=== PATIENT | male | born 1955 | race Caucasian/White ===

== ENCOUNTER 2018-06-01 15:29 | Emergency (ER) | END 2018-06-01 23:11 | disposition short-term general hospital (02) ==

== ENCOUNTER 2018-09-04 09:32 | Inpatient (IN) | payer OTHER ==
[~2018-09-04] VITALS: Ht 172.7 cm; Wt 72.0 kg
[~2018-09-04 09:32] MED LIST: ACET1TAB40 PO; ALPR1TAB2 PO; CARI350T29 PO
[2018-09-04 09:52] VITALS: Ht 172.7 cm; Wt 72.0 kg
[2018-09-04] MEDS ORDERED: ONDANSETRON 4 MG INJ IV STA (10:10)
[2018-09-04] MEDS ORDERED: NALOXONE 2 MG SYG IV ONE (10:30)
--- NOTE | 2018-09-04 10:31 | ERD ---
ER Documentation Chief Complaint Chief Complaint BIBA FOR GEN WEAKNESS,LETHARGIC ONSET TODAY.DIALYSIS Pt HPI 62-year-old man brought in by EMS for lethargy and generalized weakness, patient has no complaints. Patient transported here by EMS from [facility], he is due for hemodialysis in about 2 days. He has had no fevers or chills, no vomiting or diarrhea, no seizure activity. HPI was limited but supplemented by speaking to EMS, reviewing [facility] records, and past medical history. ROS All systems reviewed and are negative except as per history of present illness. Medications Home Meds Reported Medications Ropinirole Hcl* (Ropinirole Hcl*) 0.5 Mg Tablet, 0.5 MG PO BID, TAB 09/04/18 Levetiracetam* (Keppra*) 250 Mg Tab, 250 MG PO BID, TAB 09/04/18 Calcium Acetate* (Calcium Acetate*) 667 Mg Capsule, 667 MG PO WITH MEALS, #30 CAP 09/04/18 Carisoprodol* (Carisoprodol*) 350 Mg Tablet, 350 MG PO BID PRN for MUSCLE SPASMS, TAB 09/04/18 Alprazolam* (Alprazolam*) 1 Mg Tablet, 2 MG PO BID PRN for ANXIETY, TAB 09/04/18 Discontinued Reported Medications Carisoprodol* (Carisoprodol*) 350 Mg Tablet, 350 MG PO BID PRN for MUSCLE SPASMS, TAB 06/01/18 Alprazolam* (Xanax*) 1 Mg Tab, 1 MG PO QHS PRN for ANXIETY, TAB 06/01/18 Acetaminophen with Codeine (Acetaminophen-Cod #3 Tablet) 1 Each Tablet, 1 TAB PO Q6H PRN for NEEDED, #20 TAB 06/01/18 Allergies Allergies: Coded Allergies: levofloxacin (Verified Allergy, Mild, 09/04/18) PMhx/Soc End-stage kidney disease, hemodialysis dependent, hypertension History of Surgery: Yes (LEFT LEG SKIN GRAFT, LUNG SURGERY) Anesthesia Reaction: No Hx Neurological Disorder: No Hx Respiratory Disorders: Yes (PNA) Hx Cardiac Disorders: Yes (HTN) Hx Psychiatric Problems: No Hx Miscellaneous Medical Probl: Yes (CKD, HD) Hx Alcohol Use: No Hx Substance Use: No Hx Tobacco Use: No Smoking Status: Never smoker FmHx Family History: No diabetes Physical Exam Vitals Vital Signs Date Temp Pulse Resp B/P (MAP) Pulse Ox O2 O2 Flow FiO2 Time Delivery Rate 09/04/18 97.5 67 18 107/75 100 09:52 (86) Physical Exam GENERAL: Well-developed, elderly, chronically debilitated man, afebrile HEENT: Dry mucous membranes, pink conjunctive a, no goiter, no cervical spine tenderness NEURO: Eyes closed, patient responsive to verbal stimuli, no focal deficits, moving all extremities, CARDIAC: Regular rate and rhythm, no murmurs rubs or gallops LUNGS: Clear bilaterally no wheezing crackles or stridor ABDOMEN: Soft nontender, no guarding, no rigidity, no rebound, no psoas sign no obturator sign. SKIN: Warm and dry to touch, no abrasions, contusions, or hematomas, no lacerations, no ecchymosis, no target lesions, and without ulcers EXTREMITIES: No clubbing cyanosis or edema, calves are bilaterally symmetrical, no Homans sign, no popliteal cord sign. Distal pulses equal and bilateral PSYCH: Normal affect without agitation or irritability Result Diagram: 09/04/18 1055 09/04/18 1055 Results 24 hrs Laboratory Tests Test 09/04/18 10:55 White Blood Count 5.6 10^3/ul Red Blood Count 3.12 10^6/ul Hemoglobin 10.7 g/dl Hematocrit 31.7 % Mean Corpuscular Volume 101.6 fl Mean Corpuscular Hemoglobin 34.3 pg Mean Corpuscular Hemoglobin Concent 33.8 g/dl Red Cell Distribution Width 12.9 % Platelet Count 91 10^3/UL Mean Platelet Volume 10.0 fl Immature Granulocytes % 0.400 % Neutrophils % 64.5 % Lymphocytes % 22.2 % Monocytes % 10.2 % Eosinophils % 2.3 % Basophils % 0.4 % Nucleated Red Blood Cells % 0.0 /100WBC Immature Granulocytes # 0.020 10^3/ul Neutrophils # 3.6 10^3/ul Lymphocytes # 1.2 10^3/ul Monocytes # 0.6 10^3/ul Eosinophils # 0.1 10^3/ul Basophils # 0.0 10^3/ul Nucleated Red Blood Cells # 0.0 10^3/ul Sodium Level 141 mmol/L Potassium Level 4.0 mmol/L Chloride Level 107 mmol/L Carbon Dioxide Level 19 mmol/L Anion Gap 15 Blood Urea Nitrogen 82 mg/dl Creatinine 4.86 mg/dl Est Glomerular Filtrat Rate mL/min 12 mL/min Glucose Level 77 mg/dl Calcium Level 8.8 mg/dl Total Bilirubin 0.0 mg/dl Direct Bilirubin 0.00 mg/dl Indirect Bilirubin 0.0 mg/dl Aspartate Amino Transf (AST/SGOT) 244 IU/L Alanine Aminotransferase (ALT/SGPT) 79 IU/L Alkaline Phosphatase 133 IU/L Total Protein 7.6 g/dl Albumin 3.8 g/dl Globulin 3.80 g/dl Albumin/Globulin Ratio 1.00 Lipase 65 U/L Current Medications Medications Dose Sig/Jaqueline Start Time Status Last (Trade) Ordered Route PRN Stop Time Admin Dose Reason Admin Naloxone 1 mg ONCE ONCE 09/04/18 DC 09/04/18 HCl IV 10:30 09/04/18 11:25 (Narcan) 10:31 Ondansetron 4 mg ONCE STAT 09/04/18 DC 09/04/18 HCl (Zofran IV 10:10 09/04/18 11:25 Inj) 10:12 Cefepime HCl 50 ml @ ONCE ONCE 09/04/18 DC 09/04/18 100 mls/hr IVPB 12:00 09/04/18 12:12 12:29 Azithromycin 250 ml @ ONCE ONCE 09/04/18 DC 09/04/18 250 mls/hr IVPB 12:00 09/04/18 13:09 12:59 Procedures/MDM IV line was established 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 Patient was afebrile EKG performed, read by me revealed a normal sinus rhythm at 64 bpm, normal axis, narrow QRS complex, no concerning ST elevations or depressions noted. I administered Narcan 1 mg IV and Zofran 4 mg IV. One AP view of the chest performed, read by me reveals no acute infiltrates, atelectatic changes bilaterally, sternotomy wires, dialysis catheter in the r ight chest. CBC was unremarkable, electrolytes revealed renal failure, liver function tests revealed mild transaminitis. Patient was given opioid analgesics prior to arrival and has documented benzo diazepine prescriptions so I suspect he overdosed on one or both of those medications but he has been coughing while in the ED and x-ray today revealed possible early infiltrate of the left lung. I administered cefepime 1 g IV and azithromycin 500 mg IV after obtaining blood culture. Patient will be admitted for continued medical management. Departure Diagnosis: Primary Impression: End stage kidney disease Additional Impressions: Acute encephalopathy Pneumonia Pneumonia type: due to unspecified organism Laterality: left Lung location: lower lobe of lung Qualified Codes: J18.1 - Lobar pneumonia, unspecified organism Condition: Fair NANCY العراقي MD Sep 04, 2018 10:31
[2018-09-04] MEDS ORDERED: ALPR1TAB7 PO (11:34)
[2018-09-04] MEDS ORDERED: CARI350T29 PO (11:34)
[2018-09-04] MEDS ORDERED: CALC667C PO (11:34)
[2018-09-04] MEDS ORDERED: ROPI0.5T2 PO (11:35)
[2018-09-04] MEDS ORDERED: LEVE250T66 PO (11:35)
[2018-09-04] MEDS ORDERED: AZITHROMYCIN 500MG/NS (PMX) 250 ML IVPB ONE (12:00)
[2018-09-04] MEDS ORDERED: CEFEPIME 1GM/50 ML (PMX) 50 ML IVPB ONE (12:00)
[2018-09-04] MEDS ORDERED: SOD CHLORIDE 0.45% 1,000 ML IV SCH (13:24)
[2018-09-04] MEDS ORDERED: ONDANSETRON 4 MG INJ IV PRN (13:30)
[2018-09-04] MEDS ORDERED: MAGNESIUM HYDROXIDE 30ML CUP PO PRN (13:30)
[2018-09-04] MEDS ORDERED: LORAZEPAM 2 MG INJ IV PRN (13:30)
[2018-09-04] MEDS ORDERED: NITROGLYCERIN (SL) 0.4 MG TAB SL PRN (13:30)
[2018-09-04] MEDS ORDERED: hydrALAzine 20 MG INJ IV PRN (13:30)
[2018-09-04] MEDS ORDERED: NACL 0.9% 3 ML SYG IV SCH (13:30)
[2018-09-04] MEDS ORDERED: DOCUSATE SODIUM 100 MG CAP PO PRN (13:30)
[2018-09-04] MEDS ORDERED: ALBUTEROL/IPRATROPIUM (NEB) 3 ML AMP HHN PRN (13:30)
[2018-09-04] MEDS ORDERED: ACETAMINOPHEN 325 MG TAB PO PRN (13:30)
[2018-09-04] MEDS ORDERED: LEVOFLOXACIN 500MG/D5W (PMX) 100 ML IVPB SCH (14:00)
--- NOTE | 2018-09-04 14:23 | CONS ---
Assessment/Plan Assessment/Plan Assessment/Plan (Daily) 1. Acute Opiate Overdose 2. ESRD on HD 3. H/o Seizure disorder 4. ? prostate CA 5. Left lower lobe infitrlates concerned about Pneumonia Plan: IV abx as per PMD, renally dose all abx and monitor electrolytes Plan for HD on Thursday, K normal and No sign sof fluid overload pt came from SNF, we do not know his HD schedule Thanks for consultation, will follow up Consultation Date/Type/Reason Admit Date/Time Sep 04, 2018 at 12:30 Date of Consultation: Sep 04, 2018 Type of Consult NEPHROLOGY Reason for Consultation ESRD on HD with Opiate overdose Requesting Provider: SAY MAXWELL Date/Time of Note DATE: 09/04/18 TIME: 14:22 Hx of Present Illness 62-year-old male with past medical history of seizure disorder, Prostate CA, end-stage renal disease on dialysis MWF,, prior pneumonia, hypertension who was brought in by EMS for lethargy and generalized weakness. Most of the information is obtained from the ER documentation as the patient is unable to provide full HPI at this time. he gets admitted for Opiate overdose. Renal has been consulted for his mantainance HD, his K 4.0, HCo3 19. Subjective hx not possible: pt non-verbal, other (altered mental status, Unable to obtain ROS ) Past Medical History Medical History: high cholesterol, hypertension, other (ESRD on HD ) Home Meds Reported Medications Ropinirole Hcl* (Ropinirole Hcl*) 0.5 Mg Tablet, 0.5 MG PO BID, TAB 09/04/18 Levetiracetam* (Keppra*) 250 Mg Tab, 250 MG PO BID, TAB 09/04/18 Calcium Acetate* (Calcium Acetate*) 667 Mg Capsule, 667 MG PO WITH MEALS, #30 CAP 09/04/18 Carisoprodol* (Carisoprodol*) 350 Mg Tablet, 350 MG PO BID PRN for MUSCLE SPASMS, TAB 09/04/18 Alprazolam* (Alprazolam*) 1 Mg Tablet, 2 MG PO BID PRN for ANXIETY, TAB 09/04/18 Discontinued Reported Medications Carisoprodol* (Carisoprodol*) 350 Mg Tablet, 350 MG PO BID PRN for MUSCLE SPASM S, TAB 06/01/18 Alprazolam* (Xanax*) 1 Mg Tab, 1 MG PO QHS PRN for ANXIETY, TAB 06/01/18 Acetaminophen with Codeine (Acetaminophen-Cod #3 Tablet) 1 Each Tablet, 1 TAB PO Q6H PRN for NEEDED, #20 TAB 06/01/18 Medications Current Medications IV Flush (NS 3 ml) 3 ml PER PROTOCOL IV ; Start 09/04/18 at 13:30 Ondansetron HCl (Zofran Inj) 4 mg Q6H PRN IV NAUSEA/VOMITING; Start 09/04/18 at 13:30 Acetaminophen (Tylenol Tab) 650 mg Q6H PRN PO .PAIN 1-3 OR TEMP; Start 09/04/18 at 13:30 Docusate Sodium (Colace) 100 mg Q12H PRN PO .CONSTIPATION; Start 09/04/18 at 13:30 Magnesium Hydroxide (Milk Of Mag) 30 ml DAILY PRN PO .CONSTIPATION; Start 09/04/18 at 13:30 Pantoprazole (Protonix Tab) 40 mg DAILY@06 PO ; Start 09/05/18 at 06:00 Heparin Sodium (Porcine) (Heparin (5000 Units/1ml)) 5,000 unit Q12 SC ; Start 09/04/18 at 21:00 Sodium Chloride 1,000 ml @ 75 mls/hr [id number] IV ; Start 09/04/18 at 13:24; Stop 09/04/18 at 21:55 Lorazepam (Ativan) 0.5 mg Q6H PRN IV ANXIETY; Start 09/04/18 at 13:30 Albuterol/ Ipratropium (Duoneb) 3 ml Q4H RESP THERAPY PRN HHN SHORTNESS OF BREATH; Start 09/04/18 at 13:30 Hydralazine HCl (Apresoline) 10 mg Q6H PRN IV ELEVATED BLOOD PRESSURE; Start 09/04/18 at 13:30 Nitroglycerin (Nitroglycerin (Sl Tab) 0.4 Mg) 1 tab Q5M PRN SL ANGINA; Start 09/04/18 at 13:30 Calcium Acetate (Phoslo) 667 mg WITH MEALS PO ; Start 09/04/18 at 18:00 Levetiracetam (Keppra) 250 mg BID PO ; Start 09/04/18 at 21:00 Aztreonam 0.5 gm/ Sodium Chloride 50 ml @ 100 mls/hr Q12 IVPB ; Start 09/04/18 at 15:00 Allergies: Coded Allergies: levofloxacin (Verified Allergy, Mild, 09/04/18) Past Surgical History Past Surgical Hx: other (Dialysis access surgery, R permacath ) Family History Significant Family History: no pertinent family hx Social History Alcohol Use: none Smoking Status: Never smoker Drug Use: none Exam/Review of Systems Exam Vitals Vital Signs Date Temp Pulse Resp B/P (MAP) Pulse Ox O2 O2 Flow FiO2 Time Delivery Rate 09/04/18 98.7 80 18 126/81 98 Room Air 13:17 (96) Exam GENERAL: lethargic HEENT: Pupils are more reactive today. Extraocular muscles are intact. NECK: Supple, no thyromegaly. LUNGS: Clear to auscultation bilaterally. CARDIOVASCULAR: S1, S2 heard. No rubs or gallops. ABDOMEN: Soft, nontender, ND, BS+ MUSCULOSKELETAL: No lower extremity edema bilaterally. NEUROLOGIC: Appears to move all extremities. Gait was not assessed. Results Result Diagram: 09/04/18 1055 09/04/18 1055 Results 24hrs Laboratory Tests Test 09/04/18 10:55 White Blood Count 5.6 Red Blood Count 3.12 L Hemoglobin 10.7 L Hematocrit 31.7 #L Mean Corpuscular Volume 101.6 H Mean Corpuscular Hemoglobin 34.3 H Mean Corpuscular Hemoglobin Concent 33.8 Red Cell Distribution Width 12.9 Platelet Count 91 #L Mean Platelet Volume 10.0 Immature Granulocytes % 0.400 Neutrophils % 64.5 Lymphocytes % 22.2 Monocytes % 10.2 Eosinophils % 2.3 Basophils % 0.4 Nucleated Red Blood Cells % 0.0 Immature Granulocytes # 0.020 Neutrophils # 3.6 Lymphocytes # 1.2 Monocytes # 0.6 Eosinophils # 0.1 Basophils # 0.0 Nucleated Red Blood Cells # 0.0 Sodium Level 141 Potassium Level 4.0 Chloride Level 107 Carbon Dioxide Level 19 L Anion Gap 15 H Blood Urea Nitrogen 82 H Creatinine 4.86 H Est Glomerular Filtrat Rate mL/min 12 L Glucose Level 77 Calcium Level 8.8 Total Bilirubin 0.0 L Direct Bilirubin 0.00 Indirect Bilirubin 0.0 Aspartate Amino Transf (AST/SGOT) 244 H Alanine Aminotransferase (ALT/SGPT) 79 H Alkaline Phosphatase 133 H Total Protein 7.6 Albumin 3.8 Globulin 3.80 H Albumin/Globulin Ratio 1.00 Lipase 65 Medications Medication Current Medications IV Flush (NS 3 ml) 3 ml PER PROTOCOL IV ; Start 09/04/18 at 13:30 Ondansetron HCl (Zofran Inj) 4 mg Q6H PRN IV NAUSEA/VOMITING; Start 09/04/18 at 13:30 Acetaminophen (Tylenol Tab) 650 mg Q6H PRN PO .PAIN 1-3 OR TEMP; Start 09/04/18 at 13:30 Docusate Sodium (Colace) 100 mg Q12H PRN PO .CONSTIPATION; Start 09/04/18 at 13:30 Magnesium Hydroxide (Milk Of Mag) 30 ml DAILY PRN PO .CONSTIPATION; Start 09/04/18 at 13:30 Pantoprazole (Protonix Tab) 40 mg DAILY@06 PO ; Start 09/05/18 at 06:00 Heparin Sodium (Porcine) (Heparin (5000 Units/1ml)) 5,000 unit Q12 SC ; Start 09/04/18 at 21:00 Sodium Chloride 1,000 ml @ 75 mls/hr [id number] IV ; Start 09/04/18 at 13:24; Stop 09/04/18 at 21:55 Lorazepam (Ativan) 0.5 mg Q6H PRN IV ANXIETY; Start 09/04/18 at 13:30 Albuterol/ Ipratropium (Duoneb) 3 ml Q4H RESP THERAPY PRN HHN SHORTNESS OF BREATH; Start 09/04/18 at 13:30 Hydralazine HCl (Apresoline) 10 mg Q6H PRN IV ELEVATED BLOOD PRESSURE; Start 09/04/18 at 13:30 Nitroglycerin (Nitroglycerin (Sl Tab) 0.4 Mg) 1 tab Q5M PRN SL ANGINA; Start 09/04/18 at 13:30 Calcium Acetate (Phoslo) 667 mg WITH MEALS PO ; Start 09/04/18 at 18:00 Levetiracetam (Keppra) 250 mg BID PO ; Start 09/04/18 at 21:00 Aztreonam 0.5 gm/ Sodium Chloride 50 ml @ 100 mls/hr Q12 IVPB ; Start 09/04/18 at 15:00 SYLVESTER CORONADO MD Sep 04, 2018 14:23
--- NOTE | 2018-09-04 14:41 | HP ---
DATE OF ADMISSION: 09/04/2018 IDENTIFICATION: This is a 62-year-old male. CHIEF COMPLAINT: Weakness, possible overdose, lethargy. HISTORY OF PRESENT ILLNESS: A 62-year-old male with past medical history based on records of end-sta ge renal disease on dialysis, prior pneumonia, hypertension who was brought in by EMS for lethargy an d generalized weakness. Most of the information is obtained from the ER documentation as the patient is unable to provide full HPI at this time. He does answer simple yes/no questions. Apparently, he came from some kind of nursing facility and was noted by ER doctor to have pinpoint pupils. Upon fu rther review of his records, apparently he had been taking some benzodiazepines and possibly opiates. He received Narcan in the ER and became more awake after getting that medication, but is still quit e lethargic. Full review of systems cannot be obtained at this time. He apparently is due for [facility] in the next 2 days. PAST MEDICAL HISTORY: As above. ALLERGIES: NO KNOWN DRUG ALLERGIES. MEDICATIONS AT HOME: Based on ER documentation, he is apparently takin. Soma 350 mg p.o. b.i.d. p.r.n. 2. Alprazolam 2 mg p.o. b.i.d. p.r.n. 3. Keppra 250 mg b.i.d. 4. Ropinirole 0.5 mg b.i.d. 5. Calcium acetate 667 mg with meals. PAST SURGICAL HISTORY: Apparently, he has had some kind of left leg skin graft in the past and some kind of lung surgery in the past. SOCIAL HISTORY: Negative for smoking or alcohol use, unclear about other substance abuse as well as recreational or other. FAMILY HISTORY: Noncontributory. PHYSICAL EXAMINATION: VITAL SIGNS: T-max 97.5, pulse 67, respirations 18, blood pressure 107/75, satting 100% on room air. GENERAL: The patient is lying in bed, opens eyes, answers simple questions but otherwise no acute di stress but lethargic. HEENT: Pupils are more reactive today. Extraocular muscles are intact. NECK: Supple, no thyromegaly. LUNGS: Clear to auscultation bilaterally. CARDIOVASCULAR: S1, S2 heard. No rubs or gallops. ABDOMEN: Soft, nontender, nondistended. Normal bowel sounds. No rebound or guarding. MUSCULOSKELETAL: No lower extremity edema bilaterally. NEUROLOGIC: Appears to move all extremities. Gait was not assessed. LABORATORY DATA: CBC is normal except MCV is a little high at 101.6. Sodium 141, potassium 4.0, chl oride 107, CO2 19, BUN 82, creatinine 4.86, glucose of 77. His AST is a little high at 244, ALT is a little high at 79. Alkaline phosphatase a little high at 133. Lipase is normal. IMAGING: The patient had a chest x-ray today. He has a left lower lobe atelectatic changes, possibl e infiltrate. ASSESSMENT AND PLAN: A 62-year-old male coming in with lethargy, possibly secondary to benzos and op iate overdose, also signs of possible left lobe pneumonia. 1. Lethargy, again likely secondary to overdose on opiate and possible benzos. Admit the patient he re, did receive Narcan in the ER. Continue to monitor him for now. Consider doing neuro checks ever y 4 hours until he becomes more alert. Give him low-dose IV fluids for the next 12 hours. Check TSH , A1c, lipid panel. Hold his home muscle relaxants, opiate and benzo medications for now until he de toxifies. 2. Left lower lobe infiltrate, possible pneumonia. No fevers. White blood cell count is normal. F or now, continue Levaquin antibiotics. Follow up final culture results. Tylenol p.r.n. pain and fev ers. Get PT and speech therapy consults. 3. History of end-stage renal disease on dialysis. Again, monitor for now. Will get a renal consul t as well. Again, cautious use of fluids for the next 12 hours. 4. Questionable history of seizure. Continue Keppra for now, do neuro checks. If there are any epi sodes of possible seizures, we will get EEG and possible neurology consult. We need to get more info rmation on why the patient is taking Keppra at home, so it is unclear why he is taking that. 5. Gastrointestinal prophylaxis, PPI. 6. Deep venous thrombosis prophylaxis, heparin subq. Dictated By: SAY ORLLE/INGA Conf#: [id number] DID#: [id number]
[2018-09-04 14:43] VITALS: BP 110/64; PULSE 76; RESP 20
[2018-09-04] MEDS: CALCIUM ACETATE 667 MG CAP PO SCH (18:00)
[2018-09-04] MEDS: AZTREONAM 0.5 GM in SOD CHLORIDE 0.9% 50 ML IVPB SCH ×2 (19:29→20:42)
[2018-09-04 20:00] VITALS: BP 97/56; PULSE 69; RESP 18
[2018-09-04] MEDS: HEPARIN 5,000 UNIT/1 ML VIAL SC SCH (20:42)
[2018-09-04] MEDS: LEVETIRACETAM 250 MG TAB PO SCH (20:42)
[2018-09-05] MEDS ORDERED: ALPRAZOLAM 0.5 MG TAB PO PRN (02:30)
[2018-09-05] MEDS ORDERED: PANTOPRAZOLE (EC) 40 MG TAB PO ONE (04:17)
[2018-09-05] MEDS: PANTOPRAZOLE (EC) 40 MG TAB PO SCH (05:17)
[2018-09-05 08:54] VITALS: BP 102/61; PULSE 64; RESP 17
[2018-09-05] MEDS ORDERED: AZTREONAM 1 GM/NS (PMX) 50 ML IVPB SCH (09:00)
[2018-09-05] MEDS: LEVETIRACETAM 250 MG TAB PO SCH ×2 (09:03→21:12)
[2018-09-05] MEDS: CALCIUM ACETATE 667 MG CAP PO SCH ×3 (09:03→17:35)
[2018-09-05] MEDS: HEPARIN 5,000 UNIT/1 ML VIAL SC SCH ×2 (09:04→21:13)
[2018-09-05] MEDS: AZTREONAM 0.5 GM in SOD CHLORIDE 0.9% 50 ML IVPB SCH ×2 (09:23→21:13)
[2018-09-05] MEDS ORDERED: ALBUMIN HUMAN 25% 100 ML IV PRN (09:30)
[2018-09-05] MEDS ORDERED: HEPARIN 1000 UNITS/ML 10 ML INJ CATHETER SCH (09:30)
[2018-09-05] MEDS ORDERED: SODIUM CHLORIDE 0.9% 1L BAG IV PRN (09:30)
--- NOTE | 2018-09-05 10:03 | CONS ---
Consultation Date/Type/Reason Admit Date/Time Sep 04, 2018 at 12:30 Initial Consult Date 09/04/18 Type of Consult NEPHROLOGY Requesting Provider: SAY MAXWELL Date/Time of Note DATE: 09/05/18 TIME: 10:03 Exam/Review of Systems Exam Vitals Vital Signs Date Temp Pulse Resp B/P (MAP) Pulse Ox O2 O2 Flow FiO2 Time Delivery Rate 09/05/18 97.7 64 17 102/61 96 Room Air 08:54 (75) Intake and Output 09/04/18 09/04/18 09/05/18 1515:00 23:00 07:00 IntakeIntake Total 290 ml 50 ml BalanceBalance 290 ml 50 ml Results Result Diagram: 09/05/1843909/05/18439 Results 24hrs Laboratory Tests Test 09/04/18 10:55 09/04/18 14:07 09/05/18 04:31 09/05/18 04:40 White Blood Count 5.6 3.5 #L Red Blood Count 3.12 L 2.83 L Hemoglobin 10.7 L 9.6 L Hematocrit 31.7 #L 29.0 L Mean Corpuscular Volume 101.6 H 102.5 H Mean Corpuscular 34.3 H 33.9 H Hemoglobin Mean Corpuscular 33.8 33.1 Hemoglobin Concent Red Cell Distribution 12.9 13.4 Width Platelet Count 91 #L 89 L Mean Platelet Volume 10.0 10.8 H Immature Granulocytes % 0.400 0.300 Neutrophils % 64.5 49.5 Lymphocytes % 22.2 32.7 Monocytes % 10.2 11.2 H Eosinophils % 2.3 5.7 Basophils % 0.4 0.6 Nucleated Red Blood 0.0 0.0 Cells % Immature Granulocytes # 0.020 0.010 Neutrophils # 3.6 1.7 Lymphocytes # 1.2 1.1 Monocytes # 0.6 0.4 Eosinophils # 0.1 0.2 Basophils # 0.0 0.0 Nucleated Red Blood 0.0 0.0 Cells # Sodium Level 141 141 Potassium Level 4.0 3.7 Chloride Level 107 107 Carbon Dioxide Level 19 L 19 L Anion Gap 15 H 15 H Blood Urea Nitrogen 82 H 82 H Creatinine 4.86 H 4.59 H Est Glomerular Filtrat 12 L 13 L Rate mL/min Glucose Level 77 85 Calcium Level 8.8 8.3 L Total Bilirubin 0.0 L Direct Bilirubin 0.00 Indirect Bilirubin 0.0 Aspartate Amino 244 H Transf (AST/SGOT) Alanine 79 H Aminotransferase (ALT/SG PT) Alkaline Phosphatase 133 H Total Protein 7.6 Albumin 3.8 Globulin 3.80 H Albumin/Globulin Ratio 1.00 Lipase 65 Free Thyroxine 1.82 Ethyl Alcohol Level < 10.0 H Hepatitis B Surface Pending Antigen Hepatitis B Core Pending Total Antibody Hepatitis C Antibody Pending Hemoglobin A1c 5.1 Phosphorus Level 5.3 H Magnesium Level 2.5 Triglycerides Level 78 Cholesterol Level 100 LDL Cholesterol, 54 Calculated HDL Cholesterol 30 Cholesterol/HDL Ratio 3.3 Thyroid Stimulating 0.470 Hormone (TSH) Medications Medication Current Medications IV Flush (NS 3 ml) 3 ml PER PROTOCOL IV ; Start 09/04/18 at 13:30 Ondansetron HCl (Zofran Inj) 4 mg Q6H PRN IV NAUSEA/VOMITING; Start 09/04/18 at 13:30 Acetaminophen (Tylenol Tab) 650 mg Q6H PRN PO .PAIN 1-3 OR TEMP; Start 09/04/18 at 13:30 Docusate Sodium (Colace) 100 mg Q12H PRN PO .CONSTIPATION; Start 09/04/18 at 13:30 Magnesium Hydroxide (Milk Of Mag) 30 ml DAILY PRN PO .CONSTIPATION; Start 09/04/18 at 13:30 Pantoprazole (Protonix Tab) 40 mg DAILY@06 PO Last administered on 09/05/18at 05:17; Admin Dose 40 MG; Start 09/05/18 at 06:00 Heparin Sodium (Porcine) (Heparin (5000 Units/1ml)) 5,000 unit Q12 SC Last administered on 09/05/18at 09:04; Admin Dose 5,000 UNIT; Start 09/04/18 at 21:00 Lorazepam (Ativan) 0.5 mg Q6H PRN IV ANXIETY; Start 09/04/18 at 13:30 Albuterol/ Ipratropium (Duoneb) 3 ml Q4H RESP THERAPY PRN HHN SHORTNESS OF BR EATH; Start 09/04/18 at 13:30 Hydralazine HCl (Apresoline) 10 mg Q6H PRN IV ELEVATED BLOOD PRESSURE; Start 09/04/18 at 13:30 Nitroglycerin (Nitroglycerin (Sl Tab) 0.4 Mg) 1 tab Q5M PRN SL ANGINA; Start 09/04/18 at 13:30 Calcium Acetate (Phoslo) 667 mg WITH MEALS PO Last administered on 09/05/18at 09:03; Admin Dose 667 MG; Start 09/04/18 at 18:00 Levetiracetam (Keppra) 250 mg BID PO Last administered on 09/05/18 09:03; Admin Dose 250 MG; Start 09/04/18 at 21:00 Aztreonam 0.5 gm/ Sodium Chloride 50 ml @ 100 mls/hr Q12 IVPB Last administered on 09/05/18 09:23; Admin Dose 100 MLS/HR; Start 09/04/18 at 15:00 Carisoprodol (Soma) 350 mg BID PRN PO MUSCLE SPASMS; Start 09/04/18 at 22:30 Alprazolam (Xanax) 2 mg BID PRN PO ANXIETY Last administered on 09/05/18at 02:34; Admin Dose 2 MG; Start 09/05/18 at 02:30 Heparin Sodium (Porcine) (Heparin (1000 Units/ml)) 4,000 unit AFTER DIALYSIS CATHETER ; Start 09/05/18 at 09:30 Albumin Human 100 ml @ 100 mls/hr WITH DIALYSIS PRN IV SBP <90 DURING DIALYSIS ; Start 09/05/18 at 09:30 Sodium Chloride (NS) -To prime the dialy... DIRECTED FOR HD PRN IV HD; Start 09/05/18 at 09:30 SYLVESTER CORONADO MD Sep 05, 2018 10:03
--- NOTE | 2018-09-05 10:42 | PN ---
Date/Time of Note Date/Time of Note DATE: 09/05/18 TIME: 10:37 Assessment/Plan VTE Prophylaxis Risk score (from Ns)>0 risk: 3 SCD applied (from Ns): No SCD contraindicated: other Pharmacological prophylaxis: other Lines/Catheters IV Catheter Type (from [facility]): Peripheral IV Urinary Cath still in place: No Assessment/Plan Hospital Course renal follow up patient is well known to me from outpatient HD and previous admissions. He is a 62-year-old male with past medical history of seizure disorder, Prostate CA, end-stage renal disease on dialysis TTS, prior pneumonia, hypertension who was brought in by EMS for lethargy and generalized weakness. he was admitted to [facility] few days ago for Soma overdose. he was dc'd in stable condition but is now admitted for overdose again. Exam GENERAL: lethargic HEENT: Pupils are more reactive today. Extraocular muscles are intact. NECK: Supple, no thyromegaly. LUNGS: Clear to auscultation bilaterally. CARDIOVASCULAR: S1, S2 heard. No rubs or gallops. ABDOMEN: Soft, nontender, ND, BS+ MUSCULOSKELETAL: No lower extremity edema bilaterally. NEUROLOGIC: Appears to move all extremities. Gait was not assessed. 1. Acute Overdose: he has an outside physician who is in charge of detoxing him. he was previously on methadone but is now taking soma, xanax and norco 2. ESRD on HD: will continue intermittet HD (he is on tts schedule) 3. H/o Seizure disorder 4. anemia Result Diagram: 09/05/18 0440 09/05/18 0440 Results 24hrs Laboratory Tests Test 09/04/18 10:55 09/04/18 14:07 09/05/18 04:31 09/05/18 04:40 White Blood Count 5.6 3.5 #L Red Blood Count 3.12 L 2.83 L Hemoglobin 10.7 L 9.6 L Hematocrit 31.7 #L 29.0 L Mean Corpuscular Volume 101.6 H 102.5 H Mean Corpuscular 34.3 H 33.9 H Hemoglobin Mean Corpuscular 33.8 33.1 Hemoglobin Concent Red Cell Distribution 12.9 13.4 Width Platelet Count 91 #L 89 L Mean Platelet Volume 10.0 10.8 H Immature Granulocytes % 0.400 0.300 Neutrophils % 64.5 49.5 Lymphocytes % 22.2 32.7 Monocytes % 10.2 11.2 H Eosinophils % 2.3 5.7 Basophils % 0.4 0.6 Nucleated Red Blood 0.0 0.0 Cells % Immature Granulocytes # 0.020 0.010 Neutrophils # 3.6 1.7 Lymphocytes # 1.2 1.1 Monocytes # 0.6 0.4 Eosinophils # 0.1 0.2 Basophils # 0.0 0.0 Nucleated Red Blood 0.0 0.0 Cells # Sodium Level 141 141 Potassium Level 4.0 3.7 Chloride Level 107 107 Carbon Dioxide Level 19 L 19 L Anion Gap 15 H 15 H Blood Urea Nitrogen 82 H 82 H Creatinine 4.86 H 4.59 H Est Glomerular Filtrat 12 L 13 L Rate mL/min Glucose Level 77 85 Calcium Level 8.8 8.3 L Total Bilirubin 0.0 L Direct Bilirubin 0.00 Indirect Bilirubin 0.0 Aspartate Amino 244 H Transf (AST/SGOT) Alanine 79 H Aminotransferase (ALT/SG PT) Alkaline Phosphatase 133 H Total Protein 7.6 Albumin 3.8 Globulin 3.80 H Albumin/Globulin Ratio 1.00 Lipase 65 Free Thyroxine 1.82 Ethyl Alcohol Level < 10.0 H Hepatitis B Surface Pending Antigen Hepatitis B Core Pending Total Antibody Hepatitis C Antibody Pending Hemoglobin A1c 5.1 Phosphorus Level 5.3 H Magnesium Level 2.5 Triglycerides Level 78 Cholesterol Level 100 LDL Cholesterol, 54 Calculated HDL Cholesterol 30 Cholesterol/HDL Ratio 3.3 Thyroid Stimulating 0.470 Hormone (TSH) Exam/Review of Systems Exam Vitals Vital Signs Date Temp Pulse Resp B/P (MAP) Pulse Ox O2 O2 Flow FiO2 Time Delivery Rate 09/05/18 97.7 64 17 102/61 96 Room Air 08:54 (75) Intake and Output 09/04/18 09/04/18 09/05/18 1515:00 23:00 07:00 IntakeIntake Total 290 ml 50 ml BalanceBalance 290 ml 50 ml Results Results 24hrs Laboratory Tests Test 09/04/18 10:55 09/04/18 14:07 09/05/18 04:31 09/05/18 04:40 White Blood Count 5.6 3.5 #L Red Blood Count 3.12 L 2.83 L Hemoglobin 10.7 L 9.6 L Hematocrit 31.7 #L 29.0 L Mean Corpuscular Volume 101.6 H 102.5 H Mean Corpuscular 34.3 H 33.9 H Hemoglobin Mean Corpuscular 33.8 33.1 Hemoglobin Concent Red Cell Distribution 12.9 13.4 Width Platelet Count 91 #L 89 L Mean Platelet Volume 10.0 10.8 H Immature Granulocytes % 0.400 0.300 Neutrophils % 64.5 49.5 Lymphocytes % 22.2 32.7 Monocytes % 10.2 11.2 H Eosinophils % 2.3 5.7 Basophils % 0.4 0.6 Nucleated Red Blood 0.0 0.0 Cells % Immature Granulocytes # 0.020 0.010 Neutrophils # 3.6 1.7 Lymphocytes # 1.2 1.1 Monocytes # 0.6 0.4 Eosinophils # 0.1 0.2 Basophils # 0.0 0.0 Nucleated Red Blood 0.0 0.0 Cells # Sodium Level 141 141 Potassium Level 4.0 3.7 Chloride Level 107 107 Carbon Dioxide Level 19 L 19 L Anion Gap 15 H 15 H Blood Urea Nitrogen 82 H 82 H Creatinine 4.86 H 4.59 H Est Glomerular Filtrat 12 L 13 L Rate mL/min Glucose Level 77 85 Calcium Level 8.8 8.3 L Total Bilirubin 0.0 L Direct Bilirubin 0.00 Indirect Bilirubin 0.0 Aspartate Amino 244 H Transf (AST/SGOT) Alanine 79 H Aminotransferase (ALT/SG PT) Alkaline Phosphatase 133 H Total Protein 7.6 Albumin 3.8 Globulin 3.80 H Albumin/Globulin Ratio 1.00 Lipase 65 Free Thyroxine 1.82 Ethyl Alcohol Level < 10.0 H Hepatitis B Surface Pending Antigen Hepatitis B Core Pending Total Antibody Hepatitis C Antibody Pending Hemoglobin A1c 5.1 Phosphorus Level 5.3 H Magnesium Level 2.5 Triglycerides Level 78 Cholesterol Level 100 LDL Cholesterol, 54 Calculated HDL Cholesterol 30 Cholesterol/HDL Ratio 3.3 Thyroid Stimulating 0.470 Hormone (TSH) Medications Medication Current Medications IV Flush (NS 3 ml) 3 ml PER PROTOCOL IV ; Start 09/04/18 at 13:30 Ondansetron HCl (Zofran Inj) 4 mg Q6H PRN IV NAUSEA/VOMITING; Start 09/04/18 at 13:30 Acetaminophen (Tylenol Tab) 650 mg Q6H PRN PO .PAIN 1-3 OR TEMP; Start 09/04/18 at 13:30 Docusate Sodium (Colace) 100 mg Q12H PRN PO .CONSTIPATION; Start 09/04/18 at 13:30 Magnesium Hydroxide (Milk Of Mag) 30 ml DAILY PRN PO .CONSTIPATION; Start 09/04/18 at 13:30 Pantoprazole (Protonix Tab) 40 mg DAILY@06 PO Last administered on 09/05/18at 05:17; Admin Dose 40 MG; Start 09/05/18 at 06:00 Heparin Sodium (Porcine) (Heparin (5000 Units/1ml)) 5,000 unit Q12 SC Last administered on 09/05/18at 09:04; Admin Dose 5,000 UNIT; Start 09/04/18 at 21:00 Lorazepam (Ativan) 0.5 mg Q6H PRN IV ANXIETY; Start 09/04/18 at 13:30 Albuterol/ Ipratropium (Duoneb) 3 ml Q4H RESP THERAPY PRN HHN SHORTNESS OF BREATH; Start 09/04/18 at 13:30 Hydralazine HCl (Apresoline) 10 mg Q6H PRN IV ELEVATED BLOOD PRESSURE; Start 09/04/18 at 13:30 Nitroglycerin (Nitroglycerin (Sl Tab) 0.4 Mg) 1 tab Q5M PRN SL ANGINA; Start 09/04/18 at 13:30 Calcium Acetate (Phoslo) 667 mg WITH MEALS PO Last administered on 09/05/18at 09:03; Admin Dose 667 MG; Start 09/04/18 at 18:00 Levetiracetam (Keppra) 250 mg BID PO Last administered on 09/05/18 09:03; Admin Dose 250 MG; Start 09/04/18 at 21:00 Aztreonam 0.5 gm/ Sodium Chloride 50 ml @ 100 mls/hr Q12 IVPB Last administered on 09/05/18 09:23; Admin Dose 100 MLS/HR; Start 09/04/18 at 15:00 Carisoprodol (Soma) 350 mg BID PRN PO MUSCLE SPASMS; Start 09/04/18 at 22:30 Alprazolam (Xanax) 2 mg BID PRN PO ANXIETY Last administered on 09/05/18at 02:34; Admin Dose 2 MG; Start 09/05/18 at 02:30 Heparin Sodium (Porcine) (Heparin (1000 Units/ml)) 4,000 unit AFTER DIALYSIS CATHETER ; Start 09/05/18 at 09:30 Albumin Human 100 ml @ 100 mls/hr WITH DIALYSIS PRN IV SBP <90 DURING DIALYSIS; Start 09/05/18 at 09:30 Sodium Chloride (NS) -To prime the dialy... DIRECTED FOR HD PRN IV HD; Start 09/05/18 at 09:30 JULIETH BATES DO Sep 05, 2018 10:42
[2018-09-05] MEDS: CARISOPRODOL 350 MG TAB PO PRN (11:55)
[2018-09-05 14:00] VITALS: BP 130/65; PULSE 88; RESP 18
--- NOTE | 2018-09-05 14:54 | PN ---
Date/Time of Note Date/Time of Note DATE: 09/05/18 TIME: 14:51 Assessment/Plan VTE Prophylaxis Risk score (from Ns)>0 risk: 5 SCD applied (from Ns): No SCD contraindicated: other Pharmacological prophylaxis: heparin Lines/Catheters IV C[facility]ter Type (from [facility]): Peripheral IV Urinary Cath still in place: No Assessment/Plan Hospital Course S: Patient seen by renal team earlier. Still somewhat lethargic but slightly more awake than yesterday. No present complaints O: Vs- see below PHYSICAL EXAMINATION: GENERAL: lying in bed, opens eyes, lethargic. HEENT: Pupils reactive, Extraocular muscles are intact. NECK: Supple, no thyromegaly. LUNGS: Clear to auscultation bilaterally. CARDIOVASCULAR: S1, S2 heard. No rubs or gallops. ABDOMEN: Soft, nontender, nondistended. Normal bowel sounds. No rebound or guarding. MUSCULOSKELETAL: No lower extremity edema bilaterally. NEUROLOGIC: No focal deficits ASSESSMENT AND PLAN: 62-year-old male coming in with lethargy, possibly secondary to benzos and opiate overdose, also signs of possible left lobe p neumonia. 1. Lethargy- again likely secondary to overdose on opiate and possible benzos- did receive Narcan in the ER. - Continue to monitor him for now -Continue to hold his home muscle relaxants, opiate and benzo medications for now until he detoxifies. -PT and OT eval 2. Left lower lobe infiltrate, possible pneumonia. No fevers. White blood cell count is normal. - For now, continue Levaquin antibiotics. Follow up final culture results. - Tylenol p.r.n. pain and fevers. -Follow-up PT and speech therapy consults. 3. History of end-stage renal disease on dialysis. - Again, monitor for now. -Follow-up recommendations from renal consult as well, next dialysis session in 24 hours 4. Questionable history of seizure?-none noted during this admission - continue Keppra for now, do neuro checks. - If there are any episodes of possible seizures, we will get EEG and possible neurology consult. -In any event we need to get more information on why the patient is taking Keppra at home, so it is unclear why he is taking that. 5. Gastrointestinal prophylaxis, PPI. 6. Deep venous thrombosis prophylaxis, heparin subq. Result Diagram: 09/05/18 6500 09/05/180 Results 24hrs Laboratory Tests Test 09/05/18 04:31 09/05/18 04:40 Hepatitis B Surface Antigen NEGATIVE Hepatitis B Core Total Antibody REACTIVE H Hepatitis C Antibody REACTIVE H White Blood Count 3.5 #L Red Blood Count 2.83 L Hemoglobin 9.6 L Hematocrit 29.0 L Mean Corpuscular Volume 102.5 H Mean Corpuscular Hemoglobin 33.9 H Mean Corpuscular Hemoglobin Concent 33.1 Red Cell Distribution Width 13.4 Platelet Count 89 L Mean Platelet Volume 10.8 H Immature Granulocytes % 0.300 Neutrophils % 49.5 Lymphocytes % 32.7 Monocytes % 11.2 H Eosinophils % 5.7 Basophils % 0.6 Nucleated Red Blood Cells % 0.0 Immature Granulocytes # 0.010 Neutrophils # 1.7 Lymphocytes # 1.1 Monocytes # 0.4 Eosinophils # 0.2 Basophils # 0.0 Nucleated Red Blood Cells # 0.0 Sodium Level 141 Potassium Level 3.7 Chloride Level 107 Carbon Dioxide Level 19 L Anion Gap 15 H Blood Urea Nitrogen 82 H Creatinine 4.59 H Est Glomerular Filtrat Rate mL/min 13 L Glucose Level 85 Hemoglobin A1c 5.1 Calcium Level 8.3 L Phosphorus Level 5.3 H Magnesium Level 2.5 Triglycerides Level 78 Cholesterol Level 100 LDL Cholesterol, Calculated 54 HDL Cholesterol 30 Cholesterol/HDL Ratio 3.3 Thyroid Stimulating Hormone (TSH) 0.470 Exam/Review of Systems Exam Vitals Vital Signs Date Temp Pulse Resp B/P (MAP) Pulse Ox O2 O2 Flow FiO2 Time Delivery Rate 09/05/18 97.7 64 17 102/61 96 Room Air 08:54 (75) Intake and Output 09/04/18 09/04/18 09/05/18 1515:00 23:00 07:00 IntakeIntake Total 290 ml 50 ml BalanceBalance 290 ml 50 ml Results Results 24hrs Laboratory Tests Test 09/05/18 04:31 09/05/18 04:40 Hepatitis B Surface Antigen NEGATIVE Hepatitis B Core Total Antibody REACTIVE H Hepatitis C Antibody REACTIVE H White Blood Count 3.5 #L Red Blood Count 2.83 L Hemoglobin 9.6 L Hematocrit 29.0 L Mean Corpuscular Volume 102.5 H Mean Corpuscular Hemoglobin 33.9 H Mean Corpuscular Hemoglobin Concent 33.1 Red Cell Distribution Width 13.4 Platelet Count 89 L Mean Platelet Volume 10.8 H Immature Granulocytes % 0.300 Neutrophils % 49.5 Lymphocytes % 32.7 Monocytes % 11.2 H Eosinophils % 5.7 Basophils % 0.6 Nucleated Red Blood Cells % 0.0 Immature Granulocytes # 0.010 Neutrophils # 1.7 Lymphocytes # 1.1 Monocytes # 0.4 Eosinophils # 0.2 Basophils # 0.0 Nucleated Red Blood Cells # 0.0 Sodium Level 141 Potassium Level 3.7 Chloride Level 107 Carbon Dioxide Level 19 L Anion Gap 15 H Blood Urea Nitrogen 82 H Creatinine 4.59 H Est Glomerular Filtrat Rate mL/min 13 L Glucose Level 85 Hemoglobin A1c 5.1 Calcium Level 8.3 L Phosphorus Level 5.3 H Magnesium Level 2.5 Triglycerides Level 78 Cholesterol Level 100 LDL Cholesterol, Calculated 54 HDL Cholesterol 30 Cholesterol/HDL Ratio 3.3 Thyroid Stimulating Hormone (TSH) 0.470 Medications Medication Current Medications IV Flush (NS 3 ml) 3 ml PER PROTOCOL IV ; Start 09/04/18 at 13:30 Ondansetron HCl (Zofran Inj) 4 mg Q6H PRN IV NAUSEA/VOMITING; Start 09/04/18 at 13:30 Acetaminophen (Tylenol Tab) 650 mg Q6H PRN PO .PAIN 1-3 OR TEMP; Start 09/04/18 at 13:30 Docusate Sodium (Colace) 100 mg Q12H PRN PO .CONSTIPATION; Start 09/04/18 at 13:30 Magnesium Hydroxide (Milk Of Mag) 30 ml DAILY PRN PO .CONSTIPATION; Start 09/04/18 at 13:30 Pantoprazole (Protonix Tab) 40 mg DAILY@06 PO Last administered on 09/05/18at 05:17; Admin Dose 40 MG; Start 09/05/18 at 06:00 Heparin Sodium (Porcine) (Heparin (5000 Units/1ml)) 5,000 unit Q12 SC Last administered on 09/05/18at 09:04; Admin Dose 5,000 UNIT; Start 09/04/18 at 21:00 Lorazepam (Ativan) 0.5 mg Q6H PRN IV ANXIETY; Start 09/04/18 at 13:30 Albuterol/ Ipratropium (Duoneb) 3 ml Q4H RESP THERAPY PRN HHN SHORTNESS OF BREATH; Start 09/04/18 at 13:30 Hydralazine HCl (Apresoline) 10 mg Q6H PRN IV ELEVATED BLOOD PRESSURE; Start 09/04/18 at 13:30 Nitroglycerin (Nitroglycerin (Sl Tab) 0.4 Mg) 1 tab Q5M PRN SL ANGINA; Start 09/04/18 at 13:30 Calcium Acetate (Phoslo) 667 mg WITH MEALS PO Last administered on 09/05/18at 11:52; Admin Dose 667 MG; Start 09/04/18 at 18:00 Levetiracetam (Keppra) 250 mg BID PO Last administered on 09/05/18 09:03; Admin Dose 250 MG; Start 09/04/18 at 21:00 Aztreonam 0.5 gm/ Sodium Chloride 50 ml @ 100 mls/hr Q12 IVPB Last administered on 09/05/18 09:23; Admin Dose 100 MLS/HR; Start 09/04/18 at 15:00 Carisoprodol (Soma) 350 mg BID PRN PO MUSCLE SPASMS Last administered on 09/05/18at 11:55; Admin Dose 350 MG; Start 09/04/18 at 22:30 Alprazolam (Xanax) 2 mg BID PRN PO ANXIETY Last administered on 09/05/18at 02:34; Admin Dose 2 MG; Start 09/05/18 at 02:30 Heparin Sodium (Porcine) (Heparin (1000 Units/ml)) 4,000 unit AFTER DIALYSIS CATHETER ; Start 09/05/18 at 09:30 Albumin Human 100 ml @ 100 mls/hr WITH DIALYSIS PRN IV SBP <90 DURING DIALYSIS; Start 09/05/18 at 09:30 Sodium Chloride (NS) -To prime the dialy... DIRECTED FOR HD PRN IV HD; Start 09/05/18 at 09:30 SAY MAXWELL Sep 05, 2018 14:54
[2018-09-05 20:34] VITALS: BP 105/62; PULSE 96; RESP 18
[2018-09-06] VITALS (19 sets, daily range): BP systolic 89–123; BP diastolic 55–76; PULSE 71–89; RESP 17–18
[2018-09-06] MEDS: CARISOPRODOL 350 MG TAB PO PRN ×2 (00:19→20:57)
[2018-09-06] MEDS: PANTOPRAZOLE (EC) 40 MG TAB PO SCH (05:28)
[2018-09-06] MEDS: HEPARIN 5,000 UNIT/1 ML VIAL SC SCH ×2 (08:15→20:55)
[2018-09-06] MEDS: AZTREONAM 0.5 GM in SOD CHLORIDE 0.9% 50 ML IVPB SCH (08:15)
[2018-09-06] MEDS: CALCIUM ACETATE 667 MG CAP PO SCH ×3 (08:16→18:14)
[2018-09-06] MEDS: LEVETIRACETAM 250 MG TAB PO SCH ×2 (08:16→20:55)
--- NOTE | 2018-09-06 09:44 | PN ---
DATE: 09/06/2018 SUBJECTIVE: The patient is stable. No events overnight. OBJECTIVE: VITAL SIGNS: Blood pressure is 115/64, respiration 18, pulse 83, temperature 98.2. HEENT: Head is normocephalic. NECK: Supple. HEART: Regular rate. LUNGS: Show diminished breath sounds at the base. ABDOMEN: Soft, nontender to palpation without rebound or guarding. EXTREMITIES: Negative for clubbing, cyanosis, no edema. DERMATOLOGIC: No rashes. MUSCULOSKELETAL: No joint effusions. NEUROLOGIC: No change in exam. MEDICATIONS: Reviewed. LABORATORY DATA: Shows white count 4.7, hemoglobin 9.3, platelet count is 88. Sodium 140, potassium 3.9, chloride 112, BUN 80, creatinine 5.0. ASSESSMENT AND PLAN: 1. End-stage renal disease. The patient is on intermittent hemodialysis. Will plan for dialysis to day. We will dialyze 3 hours 2K bath, calcium 2.5. 2. Anemia. Monitor hemoglobin and hematocrit levels. Will give Epogen as needed. 3. Mineral bone disorder, monitor calcium and phosphorus levels. 4. History of seizure disorder. Continue current medical management. 5. Possible pneumonia. Continue current antibiotic regimen. 6. Lethargy, weakness, possible opiate overdose. Continue to monitor. The patient is status post N arcan. Dictated By: DAYAMI HUNTLEY/INGA Conf#: [id number] DID#: [id number] CC: SAY MAXWELL;*EndCC*
--- NOTE | 2018-09-06 13:56 | PN ---
Date/Time of Note Date/Time of Note DATE: 09/06/18 TIME: 13:46 Assessment/Plan VTE Prophylaxis Risk score (from Ns)>0 risk: 5 SCD applied (from Ns): No SCD contraindicated: other (no) Pharmacological prophylaxis: heparin Lines/Catheters IV Catheter Type (from [facility]): [place] Urinary Cath still in place: No Assessment/Plan Assessment/Plan 62-year-old man coming in with lethargy, possibly secondary to benzos and opiate overdose, also signs of possible left lobe pneumonia. 1. Lethargy- resolved. - likely secondary to overdose on opiate and possible benzos- did receive Narcan in the ER. - Patient cautioned on the effects of benzos on the elderly; he will followup with his PMD about other ways to manage anxiety. -PT and OT eval 2. Left lower lobe atelectasis, - No fevers. White blood cell count is normal. - Will stop IV antibiotics. 3. History of end-stage renal disease on dialysis. - Again, monitor for now. -Follow-up recommendations from renal consult as well, next dialysis session in 24 hours 4. Questionable history of seizure-none noted during this admission - continue Keppra for now, do neuro checks. - If there are any episodes of possible seizures, we will get EEG and possible neurology consult. -In any event we need to get more information on why the patient is taking Keppra at home, so it is unclear why he is taking that. 5. Gastrointestinal prophylaxis, PPI. 6. Deep venous thrombosis prophylaxis, heparin subq. Dispo: Plan to discharge tomorrow after dialysis. Result Diagram: 09/06/18 0515 09/06/18 0515 Subjective 24 Hr Interval Summary Free Text/Dictation Patient feeling well, no complaints. Has been doing self I/O cath which is what he does at home. Awake and alert. Plan for dialysis later today. Exam/Review of Systems Exam Vitals Vital Signs Date Temp Pulse Resp B/P (MAP) Pulse Ox O2 O2 Flow FiO2 Time Delivery Rate 09/06/18 98.2 83 18 115/64 95 Room Air 08:08 (81) Intake and Output 09/05/18 09/05/18 09/06/18 1414:59 22:59 06:59 IntakeIntake Total 570 ml 100 ml 50 ml BalanceBalance 570 ml 100 ml 50 ml Exam GENERAL: Sitting up in bed breathing comfortably, eating. HEENT: Pupils reactive, Extraocular muscles are intact. NECK: Supple, no thyromegaly. LUNGS: Clear to auscultation bilaterally. CARDIOVASCULAR: S1, S2 heard. No rubs or gallops. ABDOMEN: Soft, nontender, nondistended. Normal bowel sounds. No rebound or guarding. MUSCULOSKELETAL: No lower extremity edema bilaterally. NEUROLOGIC: No focal deficits Results Results 24hrs Laboratory Tests Test 09/06/18 05:15 White Blood Count 4.7 #L Red Blood Count 2.76 L Hemoglobin 9.3 L Hematocrit 27.9 L Mean Corpuscular Volume 101.1 H Mean Corpuscular Hemoglobin 33.7 H Mean Corpuscular Hemoglobin Concent 33.3 Red Cell Distribution Width 13.8 Platelet Count 88 L Mean Platelet Volume 10.9 H Immature Granulocytes % 0.200 Neutrophils % 68.6 Lymphocytes % 19.2 Monocytes % 8.4 Eosinophils % 3.4 Basophils % 0.2 Nucleated Red Blood Cells % 0.0 Immature Granulocytes # 0.010 Neutrophils # 3.3 Lymphocytes # 0.9 Monocytes # 0.4 Eosinophils # 0.2 Basophils # 0.0 Nucleated Red Blood Cells # 0.0 Sodium Level 140 Potassium Level 3.9 Chloride Level 112 H Carbon Dioxide Level 18 L Anion Gap 10 # Blood Urea Nitrogen 80 H Creatinine 5.00 H Est Glomerular Filtrat Rate mL/min 12 L Glucose Level 101 Calcium Level 8.5 Medications Medication Current Medications IV Flush (NS 3 ml) 3 ml PER PROTOCOL IV ; Start 09/04/18 at 13:30 Ondansetron HCl (Zofran Inj) 4 mg Q6H PRN IV NAUSEA/VOMITING; Start 09/04/18 at 13:30 Acetaminophen (Tylenol Tab) 650 mg Q6H PRN PO .PAIN 1-3 OR TEMP; Start 09/04/18 at 13:30 Docusate Sodium (Colace) 100 mg Q12H PRN PO .CONSTIPATION; Start 09/04/18 at 13:30 Magnesium Hydroxide (Milk Of Mag) 30 ml DAILY PRN PO .CONSTIPATION; Start 09/04/18 at 13:30 Pantoprazole (Protonix Tab) 40 mg DAILY@06 PO Last administered on 09/06/18at 05:28; Admin Dose 40 MG; Start 09/05/18 at 06:00 Heparin Sodium (Porcine) (Heparin (5000 Units/1ml)) 5,000 unit Q12 SC Last administered on 09/06/18 08:15; Admin Dose 5,000 UNIT; Start 09/04/18 at 21:00 Lorazepam (Ativan) 0.5 mg Q6H PRN IV ANXIETY; Start 09/04/18 at 13:30 Albuterol/ Ipratropium (Duoneb) 3 ml Q4H RESP THERAPY PRN HHN SHORTNESS OF BREATH; Start 09/04/18 at 13:30 Hydralazine HCl (Apresoline) 10 mg Q6H PRN IV ELEVATED BLOOD PRESSURE; Start 09/04/18 at 13:30 Nitroglycerin (Nitroglycerin (Sl Tab) 0.4 Mg) 1 tab Q5M PRN SL ANGINA; Start 09/04/18 at 13:30 Calcium Acetate (Phoslo) 667 mg WITH MEALS PO Last administered on 09/06/18 12:18; Admin Dose 667 MG; Start 09/04/18 at 18:00 Levetiracetam (Keppra) 250 mg BID PO Last administered on 09/06/18 08:16; Admin Dose 250 MG; Start 09/04/18 at 21:00 Aztreonam 0.5 gm/ Sodium Chloride 50 ml @ 100 mls/hr Q12 IVPB Last administered on 09/06/18 08:15; Admin Dose 100 MLS/HR; Start 09/04/18 at 15:00 Carisoprodol (Soma) 350 mg BID PRN PO MUSCLE SPASMS Last administered on 09/06/18 00:19; Admin Dose 350 MG; Start 09/04/18 at 22:30 Alprazolam (Xanax) 2 mg BID PRN PO ANXIETY Last administered on 09/05/18at 02:34; Admin Dose 2 MG; Start 09/05/18 at 02:30 Heparin Sodium (Porcine) (Heparin (1000 Units/ml)) 4,000 unit AFTER DIALYSIS CATHETER ; Start 09/05/18 at 09:30 Albumin Human 100 ml @ 100 mls/hr WITH DIALYSIS PRN IV SBP <90 DURING DIALYSIS; Start 09/05/18 at 09:30 Sodium Chloride (NS) -To prime the dialy... DIRECTED FOR HD PRN IV HD; Start 09/05/18 at 09:30 JAXSON CHAUDHARY MD Sep 06, 2018 13:56
[2018-09-07 02:00] VITALS: BP 112/53; PULSE 76; RESP 18
[2018-09-07] MEDS: PANTOPRAZOLE (EC) 40 MG TAB PO SCH (05:29)
[2018-09-07 08:11] VITALS: BP 118/56; PULSE 69; RESP 18
[2018-09-07] MEDS: CALCIUM ACETATE 667 MG CAP PO SCH ×2 (08:13→12:45)
[2018-09-07] MEDS: HEPARIN 5,000 UNIT/1 ML VIAL SC SCH (08:13)
[2018-09-07] MEDS: LEVETIRACETAM 250 MG TAB PO SCH (08:13)
--- NOTE | 2018-09-07 09:00 | PN ---
DATE: 09/07/2018 SUBJECTIVE: The patient is stable. No events overnight. OBJECTIVE: VITAL SIGNS: Blood pressure is 118/56, pulse 69, respirations 18, temperature 98.0. HEENT: Head is normocephalic. NECK: Supple. HEART: Regular rate. LUNGS: Show diminished breath sounds at the base. ABDOMEN: Soft, nontender to palpation. No rebound or guarding. EXTREMITIES: Negative for clubbing, cyanosis, no edema. DERMATOLOGIC: No rashes. MUSCULOSKELETAL: No joint effusion. NEUROLOGIC: No change in exam. MEDICATIONS: Reviewed. LABORATORY DATA: From 09/07/18 has been reviewed. ASSESSMENT AND PLAN: 1. End-stage renal disease. The patient is on dialysis Thursday, , Thursday and hemodialysis yesterday. Plan is for dialysis again today to maintain outpatient schedule. 2. Anemia. Continue to monitor hemoglobin and hematocrit levels. We will give Epogen as needed. 3. Mineral bone disorder. Monitor calcium and phosphorous levels. 4. History of seizure disorder. Continue medical management. 5. Pneumonia. Continue current antibiotic management. 6. Weakness, lethargy, improved. Continue to monitor. The patient may have had benzodiazepine over dose. Dictated By: DAYAMI MCCORMICK DO NR/NTS Conf#: [id number] DID#: [id number] CC: JAXSON CHAUDHARY MD; SYLVESTER CORONADO MD; SAY MAXWELL;*End*
--- NOTE | 2018-09-07 09:38 | PDOCDIS ---
Discharge Instructions DIAGNOSIS Discharge Diagnosis Opioid/benzodiazepine overdose CONDITION [id number] Patient Condition: [id number] Good HOME CARE INSTRUCTIONS: [id number] Diet Instructions: [id number] Reduced Sodium ACTIVITY: [id number] Activity Restrictions: [id number] No Restrictions FOLLOW UP/APPOINTMENTS Follow-up Plan 1. Take all medication as prescribed 2. Talk to your primary care doctor about alternatives to benzodiazepines to treat your anxiety. 3. Return to the emergency department for difficulty breathing or worsening lethargy. JAXSON CHAUDHARY MD Sep 07, 2018 09:38
--- NOTE | 2018-09-07 16:35 | DS ---
Date/Time of Note Date/Time of Note DATE: 09/07/18 TIME: 16:34 Discharge Summary Admission/Discharge Info Admit Date/Time Sep 04, 2018 at 12:30 Discharge Date/Time Sep 07, 2018 at 14:49 Discharge Diagnosis Opioid/benzodiazepine overdose Patient Condition: Good Consults Dr. Martin, nephrology Hx of Present Illness A 62-year-old male with past medical history based on records of end-stage renal disease on dialysis, prior pneumonia, hypertension who was brought in by EMS for lethargy and generalized weakness. Most of the information is obtained from the ER documentation as the patient is unable to provide full HPI at this time. He does answer simple yes/no questions. Apparently, he came from some kind of nursing facility and was noted by ER doctor to have pinpoint pupils. Upon further review of his records, apparently he had been taking some benzodiazepines and possibly opiates. He received Narcan in the ER and became more awake after getting that medication, but is still quite lethargic. Full review of systems cannot be obtained at this time. He apparently is due for dialysis in the next 2 days. Hospital Course CXR was done with mild atelectasis. He did not have WBC or fever or cough so antibiotics for PNA were discontinued. Mental status improved to baseline. He was cautioned about excess use of benzodiazepines especially mixed with opiates. He did get dialysis while in house. He was discharged home. Home Meds Reported Medications Ropinirole Hcl* (Ropinirole Hcl*) 0.5 Mg Tablet, 0.5 MG PO BID, TAB 09/04/18 Levetiracetam* (Keppra*) 250 Mg Tab, 250 MG PO BID, TAB 09/04/18 Calcium Acetate* (Calcium Acetate*) 667 Mg Capsule, 667 MG PO WITH MEALS, #30 CAP 09/04/18 Carisoprodol* (Carisoprodol*) 350 Mg Tablet, 350 MG PO BID PRN for MUSCLE SPASMS, TAB 09/04/18 Alprazolam* (Alprazolam*) 1 Mg Tablet, 2 MG PO BID PRN for ANXIETY, TAB 09/04/18 Discontinued Reported Medications Carisoprodol* (Carisoprodol*) 350 Mg Tablet, 350 MG PO BID PRN for MUSCLE S PASMS, TAB 06/01/18 Alprazolam* (Xanax*) 1 Mg Tab, 1 MG PO QHS PRN for ANXIETY, TAB 06/01/18 Acetaminophen with Codeine (Acetaminophen-Cod #3 Tablet) 1 Each Tablet, 1 TAB PO Q6H PRN for NEEDED, #20 TAB 06/01/18 Follow-up Plan 1. Take all medication as prescribed 2. Talk to your primary care doctor about alternatives to benzodiazepines to treat your anxiety. 3. Return to the emergency department for difficulty breathing or worsening lethargy. Primary Care Provider Not On Staff Doctor Time spent on discharge: > 30 minutes Pending Labs Laboratory Tests Test 09/07/18 05:48 White Blood Count 3.0 10^3/ul (4.8-10.8) Red Blood Count 2.62 10^6/ul (4.70-6.10) Hemoglobin 9.0 g/dl (14.0-18.0) Hematocrit 26.0 % (42.0-52.0) Mean Corpuscular Volume 99.2 fl (82.0-101.0) Mean Corpuscular Hemoglobin 34.4 pg (29.0-33.0) Mean Corpuscular Hemoglobin Concent 34.6 g/dl (32.0-37.0) Red Cell Distribution Width 13.6 % (11.5-14.5) Platelet Count 79 10^3/UL (140-415) Mean Platelet Volume 10.5 fl (7.4-10.4) Immature Granulocytes % 0.000 % (0.001-0.429) Neutrophils % 55.4 % (39.0-77.0) Lymphocytes % 29.3 % (15.0-51.0) Monocytes % 11.3 % (0.0-11.0) Eosinophils % 3.7 % (0.0-7.0) Basophils % 0.3 % (0.0-2.0) Nucleated Red Blood Cells % 0.0 /100WBC (0.0-0.0) Immature Granulocytes # 0.000 10^3/ul (0.0-0.031) Neutrophils # 1.7 10^3/ul (1.6-7.5) Lymphocytes # 0.9 10^3/ul (0.8-2.9) Monocytes # 0.3 10^3/ul (0.3-0.9) Eosinophils # 0.1 10^3/ul (0.0-0.5) Basophils # 0.0 10^3/ul (0.0-0.1) Nucleated Red Blood Cells # 0.0 10^3/ul (0.0-0.0) Sodium Level 143 mmol/L (135-144) Potassium Level 4.1 mmol/L (3.5-5.1) Chloride Level 106 mmol/L (97-110) Carbon Dioxide Level 27 mmol/L (21-31) Anion Gap 10 (5-13) Blood Urea Nitrogen 39 mg/dl (7-20) Creatinine 3.20 mg/dl (0.61-1.24) Est Glomerular Filtrat Rate mL/min 20 mL/min (>60) Glucose Level 88 mg/dl (70-220) Calcium Level 8.6 mg/dl (8.4-10.2) JAXSON CHAUDHARY MD Sep 07, 2018 16:35
== END 2018-09-07 14:49 | disposition home or self-care (01) | DRG 917 ==
LOC: E/R 09:32 → PP2 12:30
PROVIDERS: ADMIT Hospitalist; ATTEND Internal Medicine
PROC: 5A1D70Z Performance of Urinary Filtration, Intermittent, Less than 6 Hours Per Day (ICD-10-PCS; principal; 2018-09-07)
DX: T40.601A Poisoning by unspecified narcotics, accidental (unintentional), initial encounter (principal); N18.6 End stage renal disease; G92 Toxic encephalopathy; J98.11 Atelectasis; I12.0 Hypertensive chronic kidney disease with stage 5 chronic kidney disease or end stage renal disease; T42.4X1A Poisoning by benzodiazepines, accidental (unintentional), initial encounter; E78.00 Pure hypercholesterolemia, unspecified; G40.909 Epilepsy, unspecified, not intractable, without status epilepticus; D63.1 Anemia in chronic kidney disease; Z99.2 Dependence on renal dialysis; Z87.01 Personal history of pneumonia (recurrent); Z85.46 Personal history of malignant neoplasm of prostate
CPT/HCPCS: 36415; 71045; 80048; 80053; 80061; 80307; 83036; 83690; 83735; 84100; 84439; 84443; 85025; 86704; 86709; 86803; 87040; 87340; 90935; 92610; 93005; 96365; 96375; 97116; 97161; 97530; A4310; J0456; J0692; J1644; J2060; J2310; J2405; P9047